=== PATIENT | female | born 2000 | race Hispanic/Latino ===

== ENCOUNTER 2020-07-09 11:06 | Emergency (ER) | payer OTHER ==
[2020-07-09] MEDS ORDERED: Dexamethasone 10 MG/ML VIAL ONE (12:06)
[2020-07-10 01:53] LABS: SARS-CoV-2 PCR by NAA Not Detected (NotDetected)
== END 2020-07-09 12:19 | disposition home or self-care (01) ==
LOC: CSHERS 11:06
DX: J06.9 Acute upper respiratory infection, unspecified (principal); Z20.822 Contact with and (suspected) exposure to COVID-19
CPT/HCPCS: 87635; 99283; J1100; U0003; U0005

== ENCOUNTER 2021-01-28 11:29 | Outpatient (CLI) | payer OTHER ==
[2021-01-29 08:44] LABS: SARS-CoV-2 PCR by NAA Not Detected (NotDetected)
== END 2021-01-28 11:30 | disposition home or self-care (01) ==
LOC: CSHLAB 11:29
PROVIDERS: ATTEND Family Medicine
DX: Z01.812 Encounter for preprocedural laboratory examination (principal); Z20.822 Contact with and (suspected) exposure to COVID-19
CPT/HCPCS: U0003; U0005

== ENCOUNTER 2021-02-01 05:46 | Inpatient (IN) | payer OTHER ==
[2021-02-01] MEDS ORDERED: CEFAZOLIN 2 GM in Premix Bag 1 BAG IVPB SCH ×2 (06:05→09:00)
[2021-02-01] MEDS ORDERED: Promethazine HCl 25 MG/ML VIAL IM PRN ×3 (06:05→13:13)
[2021-02-01] MEDS ORDERED: Ondansetron PF 4 MG/2 ML Vial IVP PRN ×3 (06:05→13:13)
[2021-02-01] MEDS ORDERED: Bicitra 30 ML UDCUP PO PRN (06:05)
[2021-02-01] MEDS ORDERED: Famotidine/PF 20 mg/2ml Vial SLOW IVP PRN (06:05)
[2021-02-01] MEDS ORDERED: Lactated Ringer's 1,000 ML IV SCH (06:05)
[2021-02-01] MEDS ORDERED: hydrALAZINE 20 MG/ML VIAL SLOW IVP PRN ×2 (06:05→13:13)
[2021-02-01 06:33] VITALS: BMI 34.6
[2021-02-01 06:51] LABS: Mean Corpuscular HGB CONC 30.2 g/dL (32.0-36.0); Mean Corpuscular Hemoglobin 22.2 pg (27.0-33.0); Mean Corpuscular Volume 73.4 fl (81.6-98.3); Mean Platelet Volume 11.1 fl (7.4-10.4); Platelet Count 423 10x3/uL (150-450); RBC Distribution Width 14.2 % (11.5-14.5); Red Blood Cell (RBC) Count 4.06 10x6/uL (3.90-5.03); White Blood Cell (WBC) Count 7.6 10x3/uL (3.5-10.5)
[2021-02-01] MEDS ORDERED: PHENYLEPHRINE-NS 100 MCG/ML 10 ML SYRINGE ONE (06:53)
[2021-02-01] MEDS ORDERED: Morphine PF 10 MG/10 ML VIAL ONE (06:53)
[2021-02-01] MEDS ORDERED: Oxytocin 10 UNITS/ML VIAL ONE ×2 (07:01→10:46)
[2021-02-01] MEDS ORDERED: Ketorolac Tromethamine 30 MG/ML VIAL ONE (07:01)
[2021-02-01] MEDS ORDERED: Dexamethasone 4 mg/ml Vial ONE (07:01)
[2021-02-01] MEDS ORDERED: Metoclopramide HCl 10 MG/2 ML VIAL ONE (07:01)
[2021-02-01] MEDS ORDERED: Ondansetron PF 4 MG/2 ML Vial ONE (07:01)
[2021-02-01] MEDS ORDERED: Phenylephrine 40 MG/NS 250 ML 250 ML ONE (07:01)
[2021-02-01 07:24] LABS: Hep B Surf Ag Non-Reactive S/CO (NonReactive)
[2021-02-01 07:26] LABS: Syphilis Antibody Nonreactive (Nonreactive); Syphilis Antibody Index 0.06 S/CO (<1.00 Non-Reactive)
[2021-02-01 07:34] LABS: HBSAg Index 0.22 S/CO (0-0.99)
[2021-02-01] MEDS ORDERED: diphenhydrAMINE 50 MG/ML VIAL IVP PRN (09:55)
[2021-02-01] MEDS ORDERED: Naloxone HCl 0.4 mg/ml Vial IV PRN (09:55)
[2021-02-01] MEDS ORDERED: Ondansetron HCl/PF 4 MG/2 ML Vial IVP PRN (09:55)
[2021-02-01] MEDS ORDERED: Hydrocerin (Eucerin) Cream 120 gm Jar TOP PRN (09:55)
[2021-02-01] MEDS ORDERED: Naloxone HCl 0.4 mg/ml Vial IVP PRN ×2 (09:55)
[2021-02-01] MEDS ORDERED: Promethazine HCl 25 MG SUPP PR PRN (09:55)
[2021-02-01] MEDS ORDERED: Fentanyl 100 MCG/2 ML VIAL SLOW IVP PRN (09:55)
[2021-02-01] MEDS ORDERED: Meperidine HCl/PF 25 MG/ML VIAL SLOW IVP PRN (09:55)
[2021-02-01] MEDS ORDERED: Communication Order-Pharmacy FS SCH (10:00)
[2021-02-01] MEDS ORDERED: diphenhydrAMINE 25 MG CAP PO PRN (13:13)
[2021-02-01] MEDS ORDERED: Bisacodyl 10 MG SUPP PR PRN (13:13)
[2021-02-01] MEDS ORDERED: Boostrix 0.5 ML (Tdap) VIAL IM ONE (13:13)
[2021-02-01] MEDS ORDERED: Lanolin Ointment 7 GM TUBE TOP PRN (13:13)
[2021-02-01] MEDS ORDERED: Ketorolac Tromethamine 30 MG/ML VIAL IVP PRN (17:00)
[2021-02-01] MEDS: Ketorolac Tromethamine 30 MG/ML VIAL IVP SCH ×2 (17:31→23:53)
[2021-02-01] MEDS: Docusate Calcium (SURFAK) 240 MG CAP PO SCH (19:39)
[2021-02-01] MEDS: Ferrous Sulfate 325 MG TAB PO SCH (19:40)
[2021-02-01] MEDS ORDERED: Meperidine HCl/PF 25 MG/ML VIAL IM PRN (22:00)
[2021-02-01] MEDS ORDERED: HYDROcodone/Acetaminophen 5/325 mg Tablet PO PRN (22:00)
[2021-02-02 05:31] LABS: Hemoglobin 6.7 g/dL (12.0-15.5); Mean Corpuscular HGB CONC 29.5 g/dL (32.0-36.0); Mean Corpuscular Hemoglobin 22.2 pg (27.0-33.0); Mean Corpuscular Volume 75.2 fl (81.6-98.3); Platelet Count 325 10x3/uL (150-450); RBC Distribution Width 14.2 % (11.5-14.5); Red Blood Cell (RBC) Count 3.02 10x6/uL (3.90-5.03); White Blood Cell (WBC) Count 11.5 10x3/uL (3.5-10.5)
[2021-02-02] MEDS: Ketorolac Tromethamine 30 MG/ML VIAL IVP SCH (06:34)
[2021-02-02] MEDS: Ferrous Sulfate 325 MG TAB PO SCH ×2 (09:14→21:43)
[2021-02-02] MEDS: HYDROcodone/Acetaminophen 5/325 mg Tablet PO PRN ×3 (09:14→19:15)
[2021-02-02] MEDS: Prenatal Vitamin 1 TAB PO SCH (09:14)
[2021-02-02] MEDS: Docusate Calcium (SURFAK) 240 MG CAP PO SCH ×2 (09:14→21:43)
[2021-02-02] MEDS ORDERED: Lactated Ringer's 1,000 ML IV SCH (12:45)
[2021-02-02] MEDS: Simethicone Chewable 80 MG TAB PO PRN (13:29)
[2021-02-02] MEDS: Ibuprofen 800 MG TAB PO SCH (21:43)
[2021-02-03] MEDS: Ibuprofen 800 MG TAB PO SCH ×3 (06:08→21:41)
[2021-02-03] MEDS: Ferrous Sulfate 325 MG TAB PO SCH ×2 (08:20→21:41)
[2021-02-03] MEDS: Prenatal Vitamin 1 TAB PO SCH (08:21)
[2021-02-03] MEDS: Docusate Calcium (SURFAK) 240 MG CAP PO SCH ×2 (08:21→21:41)
[2021-02-03] MEDS: HYDROcodone/Acetaminophen 5/325 mg Tablet PO PRN ×2 (08:23→19:52)
[2021-02-03] MEDS: Simethicone Chewable 80 MG TAB PO PRN (14:41)
[2021-02-04] MEDS: Ibuprofen 800 MG TAB PO SCH (05:18)
[2021-02-04 08:01] VITALS: BP 101/58; TEMP 98.8
[2021-02-04] MEDS: Docusate Calcium (SURFAK) 240 MG CAP PO SCH (08:57)
[2021-02-04] MEDS: Simethicone Chewable 80 MG TAB PO PRN (08:58)
[2021-02-04] MEDS: Ferrous Sulfate 325 MG TAB PO SCH (08:58)
[2021-02-04] MEDS: Prenatal Vitamin 1 TAB PO SCH (08:58)
== END 2021-02-04 11:45 | disposition home or self-care (01) | DRG 788 ==
LOC: CSHLD 05:46 → CSHPP 14:51
PROVIDERS: ADMIT Family Medicine; ATTEND Family Medicine
PROC: 10D00Z1 Extraction of Products of Conception, Low, Open Approach (ICD-10-PCS; principal; 2021-02-01)
DX: O34.211 Maternal care for low transverse scar from previous cesarean delivery (principal); Z37.0 Single live birth; Z20.822 Contact with and (suspected) exposure to COVID-19; Z3A.39 39 weeks gestation of pregnancy; O99.02 Anemia complicating childbirth
CPT/HCPCS: 36415; 51702; 85027; 86780; 86850; 86900; 86901; 87340; J0690; J1100; J1885; J2274; J2405; J2550; J2590; J2765; J7120; S0028

== ENCOUNTER 2021-04-01 20:02 | Emergency (ER) | payer OTHER ==
[2021-04-01 22:24] LABS: #Eosinphils 0.2 10x3/uL (0.0-0.5); #Monocytes 0.6 10x3/uL (0.0-1.1); #Neutrophils 4.7 10x3/uL (1.5-8.4); %Basophils 0.2 % (0.0-2.0); %Eosinophils 1.8 % (0.0-6.0); %Lymphocytes 42.3 % (18.0-47.0); %Monocytes 5.9 % (0.0-10.0); %Neutrophils 49.7 % (40.0-75.0); Hemoglobin 10.2 g/dL (12.0-15.5); Mean Corpuscular HGB CONC 29.2 g/dL (32.0-36.0); Mean Corpuscular Hemoglobin 22.4 pg (27.0-33.0); Mean Corpuscular Volume 76.5 fl (81.6-98.3); Mean Platelet Volume 10.7 fl (7.4-10.4); Platelet Count 432 10x3/uL (150-450); Red Blood Cell (RBC) Count 4.56 10x6/uL (3.90-5.03); White Blood Cell (WBC) Count 9.5 10x3/uL (3.5-10.5)
[2021-04-01 22:31] LABS: ALT (SGPT) 8 U/L (8-55); AST (SGOT) 11 U/L (5-34); Albumin 4.4 g/dL (3.5-5.0); Alkaline Phosphatase 105 U/L (40-110); Anion Gap 11 mmol/L (10-20); BUN (Urea Nitrogen) 13 mg/dL (7.0-18.7); Bilirubin, Total 0.1 mg/dL (0.2-1.2); Calc. Creatinine Clearance 0 mL/min (70-130); Calcium 9.4 mg/dL (7.8-10.44); Carbon Dioxide 28 mmol/L (22-29); Chloride 106 mmol/L (98-107); Globulin 3.5 g/dL (2.4-3.5); Glucose 93 mg/dL (70-105); Potassium 3.7 mmol/L (3.5-5.1); Protein, Total 7.9 g/dL (6.0-8.3); Sodium 141 mmol/L (136-145)
== END 2021-04-01 23:14 | disposition home or self-care (01) ==
LOC: CSHERS 20:02
DX: M62.838 Other muscle spasm (principal)
CPT/HCPCS: 70450; 80053; 85025